=== PATIENT | female | born 1985 | race Two or more races ===

== ENCOUNTER 2017-07-17 23:49 | Emergency (ER) | payer SELFPAY ==
[~2017-07-17] VITALS: Ht 152.4 cm; Wt 67.9 kg
[~2017-07-17 23:49] MED LIST: BACTRIM,SEPT1 TABLET PO; BREAST PUMP MC; FERROUS SULFAT325 MG PO; FLAGYL500 MG PO; FOLIC ACID0.4 MG PO; MOTRIN800 MG PO; PERCOCET 5/31 TABLET PO; PRENATAL TABLE1 EAC3 PO
[2017-07-17 23:51] VITALS: BP 138/95
[2017-07-19] MEDS ORDERED: K-DUR20 MEQ PO (11:17)
[2017-07-19] MEDS ORDERED: MEDROL DOSEPAK4 MG PO (11:17)
[2017-07-19] MEDS ORDERED: TYLENOL WITH C1 EACH PO (11:17)
== END 2017-07-18 03:16 | disposition left against medical advice (07) ==
LOC: EME 23:49
DX: L23.9 Allergic contact dermatitis, unspecified cause (principal)
CPT/HCPCS: 99281; 99284; J2930

== ENCOUNTER 2017-07-19 08:26 | Emergency (ER) | payer OTHER ==
[~2017-07-19] VITALS: Ht 152.4 cm; Wt 66.8 kg
[2017-07-19 09:27] LABS: EOSINOPHIL (%) 0.3 % (0-5); HEMATOCRIT 43.4 % (36.0-46.0); IMMATURE GRANULOCYTE (%) 0.3 % (0.0-0.7); INSTRUMENT ABS NEUTROPHIL CT 7.3 K/uL; LYMPHOCYTE COUNT 2.1 K/uL (1.0-2.8); MCH 30.7 PG (29.0-34.0); MCHC 33.4 G/DL (30.0-36.0); MCV 91.9 FL (83-99); MEAN PLAT.VOLUME 10.5 uM^3 (9.5-12.4); MONOCYTE (%) 9.1 % (3-12); NEUTROPHIL (%) 69.6 % (45-76); NEUTROPHIL COUNT 7.3 K/uL (1.8-6.4); PLATELET COUNT 220 K/uL (156-360); RBC DIS.WIDTH-CV 13.4 % (11.8-14.6); RBC DIS.WIDTH-SD 45.7 % (39-53); RED BLOOD COUNT 4.72 M/uL (3.80-5.20); WHITE BLOOD COUNT 10.5 K/uL (4.1-10.2)
[2017-07-19 09:34] LABS: CHLORIDE 105 mEq/L (99-109); POTASSIUM 3.1 mEq/L (3.7-5.4); SODIUM 140 mEq/L (136-147)
[2017-07-19 09:35] LABS: GLUCOSE 87 mg/dL (70-99)
[2017-07-19 09:37] LABS: ANION GAP 10 MEQ/L (2-14)
[2017-07-19 09:39] LABS: GFR ESTIMATE (CALCULATED) > 59 mL/min/
[2017-07-19 09:40] LABS: UREA NITROGEN (BUN) 11 mg/dL (9-23)
[2017-07-19 09:47] LABS: QUANTITATIVE HCG < 4.0 MIU/ML
[2017-07-19] MEDS ORDERED: MEDROL DOSEPAK4 MG PO (11:17)
[2017-07-19] MEDS ORDERED: TYLENOL WITH C1 EACH PO (11:17)
[2017-07-19] MEDS ORDERED: K-DUR20 MEQ PO (11:17)
[2017-07-19 11:21] VITALS: BP 121/74
== END 2017-07-19 11:28 | disposition home or self-care (01) ==
LOC: EME 08:26
PROVIDERS: Emergency Medicine
DX: S30.1XXA Contusion of abdominal wall, initial encounter (principal); S80.02XA Contusion of left knee, initial encounter; E87.6 Hypokalemia; L30.9 Dermatitis, unspecified; V49.40XA Driver injured in collision with unspecified motor vehicles in traffic accident, initial encounter; Z91.040 Latex allergy status
CPT/HCPCS: 73564; 74177; 80048; 84702; 85025; 99281; 99285; J7030

== ENCOUNTER 2017-11-30 00:57 | Emergency (ER) | payer OTHER ==
[~2017-11-30] VITALS: Ht 152.4 cm; Wt 68.0 kg
[~2017-11-30 00:57] MED LIST changes: +K-DUR20 MEQ PO; +MEDROL DOSEPAK4 MG PO; +TYLENOL WITH C1 EACH PO
[2017-11-30 01:26] LABS: HEMATOCRIT 40.9 % (36.0-46.0); HEMOGLOBIN 13.8 G/DL (11.9-15.5); MCH 31.1 PG (29.0-34.0); MCHC 33.7 G/DL (30.0-36.0); MCV 92.1 FL (83-99); PLATELET COUNT 243 K/uL (156-360); RBC DIS.WIDTH-SD 44.6 % (39-53); RED BLOOD COUNT 4.44 M/uL (3.80-5.20); WHITE BLOOD COUNT 7.3 K/uL (4.1-10.2)
[2017-11-30 01:37] LABS: ALBUMIN 4.4 g/dL (3.2-4.8)
[2017-11-30 01:38] LABS: CHLORIDE 105 mEq/L (99-109); POTASSIUM 3.8 mEq/L (3.7-5.4); SODIUM 139 mEq/L (136-147)
[2017-11-30 01:40] LABS: GLUCOSE 91 mg/dL (70-99); TOTAL PROTEIN 7.2 g/dL (6.4-8.3)
[2017-11-30 01:42] LABS: TOTAL BILIRUBIN 0.3 mg/dL (0.0-1.0)
[2017-11-30 01:43] LABS: ALKALINE PHOSPHATASE 77 IU/L (3-129)
[2017-11-30 01:44] LABS: CREATININE 0.8 mg/dL (0.6-1.3); GFR ESTIMATE (CALCULATED) > 59 mL/min/
[2017-11-30 01:45] LABS: AST (GOT) 13 IU/L (2-34); UREA NITROGEN (BUN) 16 mg/dL (9-23)
[2017-11-30 01:47] LABS: ALT (GPT) 10 IU/L (3-49)
[2017-11-30 01:55] LABS: QUANTITATIVE HCG < 4.0 MIU/ML
[2017-11-30 03:27] LABS: APPEARANCE SL.HAZY ((CLEAR)); BILIRUBIN NEGATIVE; BLOOD NEGATIVE; COLOR YELLOW ((YELLOW)); GLUCOSE (STRIP) NEGATIVE; KETONES NEGATIVE; LEUKOCYTES NEGATIVE; NITRITE NEGATIVE; PROTEIN (STRIP) NEGATIVE; SPECIFIC GRAVITY 1.024 (1.000-1.030); UROBILINOGEN 0.2 MG/DL (0.2-1.0)
[2017-11-30 03:41] LABS: BACTERIA RARE /HPF; EPITHELIAL CELLS 1+ /HPF; MUCUS 1+ /LPF; UCUL ADDED? NO; WHITE BLOOD CELLS 0-5 /HPF (0-5)
[2017-11-30 04:37] VITALS: BP 132/84
== END 2017-11-30 04:41 | disposition home or self-care (01) ==
LOC: EME 00:57
DX: R10.9 Unspecified abdominal pain (principal); Z86.19 Personal history of other infectious and parasitic diseases; Z87.42 Personal history of other diseases of the female genital tract; Z97.5 Presence of (intrauterine) contraceptive device; J30.2 Other seasonal allergic rhinitis; Z91.040 Latex allergy status
CPT/HCPCS: 80053; 81003; 84702; 85027; 99281; 99284